=== PATIENT | male | born 1965 | race Caucasian/White ===

== ENCOUNTER → 2016-11-28 | Outpatient (CLI) | payer OTHER | LOC: M SMT 10:28 | PROVIDERS: ATTEND Nurse Practitioner Women's Health | DX: Z12.5 Encounter for screening for malignant neoplasm of prostate (principal) ==

== ENCOUNTER 2017-06-09 09:23 | Day surgery (SDC) | payer OTHER ==
[2017-06-09] MEDS: LR 1,000 ML IV (11:30)
[2017-06-09] MEDS ORDERED: LIDOCAINE 2% INJ 100 MG/5 ML SDV (FOR ANES.) As Ordered (12:21)
[2017-06-09] MEDS ORDERED: KETOROLAC 60 MG/2 ML VIAL (J1885) As Ordered (12:21)
[2017-06-09] MEDS ORDERED: ONDANSETRON 4MG/2ML VIAL (J2405) As Ordered (12:21)
[2017-06-09] MEDS ORDERED: fentaNYL 250 MCG/5 ML INJECTION (J3010) As Ordered (12:21)
[2017-06-09] MEDS ORDERED: PROPOFOL 200 MG/20 ML VIAL As Ordered ×2 (12:21→12:26)
[2017-06-09] MEDS ORDERED: ROCURONIUM BROMIDE 50 MG/5 ML VIAL As Ordered (12:21)
[2017-06-09] MEDS ORDERED: NEOSTIGMINE 10 MG/10 ML VIAL (J2710) As Ordered (12:21)
[2017-06-09] MEDS ORDERED: dexameTHASONE 4 MG/ML 1ML VIAL (J1100) As Ordered (12:21)
[2017-06-09] MEDS ORDERED: MIDAZOLAM INJ 2 MG/2 ML VIAL (J2250) As Ordered (12:21)
[2017-06-09] MEDS ORDERED: GLYCOPYRROLATE INJ 0.2 MG/ML 2 ML VIAL As Ordered ×2 (12:21)
[2017-06-09] MEDS ORDERED: ePHEDrine SULFATE 25 MG/5 ML(5MG/ML) SYRINGE As Ordered (12:24)
[2017-06-09] MEDS: BACITRACIN OINT 30GM As Ordered (12:44)
[2017-06-09] MEDS: BUPIVACAINE HCL 0.25% 30 ML VIAL As Ordered (12:44)
[2017-06-09] MEDS ORDERED: LR 1,000 ML IV (13:15)
[2017-06-09] MEDS ORDERED: fentaNYL 100 MCG/2 ML INJECTION (J3010) IV (13:15)
[2017-06-09] MEDS ORDERED: ONDANSETRON 4MG/2ML VIAL (J2405) IV (13:15)
[2017-06-09] MEDS ORDERED: ACETAMINOPHEN 650MG ER TAB (TYLENOL ARTHRITIS) PO (14:00)
[2017-06-09] MEDS ORDERED: BACTRIM 160MG/800MG DS TAB PO (21:00)
== END 2017-06-09 15:30 | disposition home or self-care (01) ==
LOC: M SDC 09:23
DX: N50.3 Cyst of epididymis (principal); Z79.899 Other long term (current) drug therapy
CPT/HCPCS: 54840